=== PATIENT | female | born 1985 | race American Indian/Alaskan Native ===

== ENCOUNTER 2019-07-31 15:20 | Inpatient (IN) | payer MEDICAID ==
[2019-07-31] MEDS ORDERED: LACTATED RINGERS 500 ML IV ONE (17:00)
[2019-07-31 17:08] LABS: Basophils # (Auto) 0.1 K/mm3 (0.0-0.1); Basophils % (Auto) 0.5 % (0.0-1.8); Eosinophils # (Auto) 0.2 K/mm3 (0.0-0.4); Eosinophils % (Auto) 1.3 % (0.0-4.3); Hematocrit 35.3 % (30.3-42.9); Hemoglobin 11.9 gm/dl (10.1-14.3); Lymphocytes # (Auto) 1.6 K/mm3 (1.2-5.4); Lymphocytes % (Auto) 10.8 % (13.4-35.0); Mean Corpuscular HGB Conc 34 % (30-34); Mean Corpuscular Volume 88 fl (79-97); Monocytes # (Auto) 1.1 K/mm3 (0.0-0.8); Monocytes % (Auto) 7.5 % (0.0-7.3); Platelet Count 483 K/mm3 (140-440); Red Blood Count 4.03 M/mm3 (3.65-5.03); Red Cell Distribution Width 15.4 % (13.2-15.2)
[2019-07-31] MEDS ORDERED: OXYTOCIN 20 UNIT/1000ML DRIP 40,000 MILLIUNITS/2,000 ML BAG IV ONE (17:36)
[2019-07-31] MEDS ORDERED: NALOXONE 0.4 MG/1 ML INJ IV PRN (17:47)
[2019-07-31] MEDS ORDERED: MINERAL OIL 30 ML ORAL LIQD PO PRN (17:47)
[2019-07-31] MEDS ORDERED: ePHEDrine SULFATE 50 MG/1 ML INJ IV PRN (17:47)
[2019-07-31] MEDS ORDERED: TERBUTALINE 1 MG/1 ML INJ SUB-Q PRN (17:47)
[2019-07-31] MEDS ORDERED: LIDOCAINE (2%) 20 MG/1 ML VIAL 20 ML MDV INFILTRATI ONE (17:47)
[2019-07-31] MEDS ORDERED: TERBUTALINE 1 MG/1 ML INJ IVP PRN (17:47)
--- NOTE | 2019-07-31 17:52 | History and Physical Report ---
History of Present Illness Date of examination: 07/31/19 Chief complaint: vaginal bleeding History of present illness: Pt is a 33 year old female GABRIEL 12/06/19 at 21w5d who presents with abdominal cramping and vaginal bleeding. She denies leakage of fluid and reports movement. She has had care at [facility] with comanagement by [facility] secondary to advanced maternal age, chronic hypertension on labetalol, morbid obesity, genital herpes without lesion or prodrome, and prior . Her GBS status is unknown. Upon admission, CB and type and screen were ordered, as well as ultrasound for placental location and cervical length. While on-call physician en route to perform speculum exam, pt experienced PPROM and rapidly progressed to delivery. Please see delivery note. Past History Past Medical History: hypertension, other (obesity) Past Surgical History: section [employer] History: herpes Family/Genetic History: heart disease Social history: no significant social history - Obstetrical History Expected Date of Delivery: 12/06/19 Actual Gestation: 21 Week(s) 5 Day(s) : 2 Para: 1 Hx # Term Pregnancies: 1 Number of Pregnancies: 0 Spontaneous Abortions: 0 Induced : 0 Number of Living Children: 1 Medications and Allergies Allergies Allergy/AdvReac Type Severity Reaction Status Date / Time No Known Allergies Allergy Unverified 10/30/14 21:03 Home Medications Medication Instructions Recorded Confirmed Last Taken Type No Known Home Medications [No 10/30/14 10/30/14 Unknown History Reported Home Medications] Active Meds: Active Medications Ephedrine Sulfate (Ephedrine Sulfate) 10 mg IV Q2M PRN PRN Reason: Hypotension Oxytocin/Sodium Chloride (Pitocin/Ns 20 Unit/1000ml Drip) 20 units in 1,000 mls @ 125 mls/hr IV DIRECT FABIAN Lactated Ringer's (Lactated Ringers) 1,000 mls @ 125 mls/hr IV DIRECT FABIAN Mineral Oil (Mineral Oil) 30 ml PO QHS PRN PRN Reason: Constipation Naloxone HCl (Naloxone) 0.1 mg IV Q2MIN PRN PRN Reason: Res Rate </= 8 or 02 SAT < 92% Terbutaline Sulfate (Brethine) 0.25 mg SUB-Q ONCE PRN PRN Reason: Hyperstimulation/Hypertonicity Terbutaline Sulfate (Brethine) 0.25 mg IVP ONCE PRN PRN Reason: Hyperstimulation/Hypertonicity Review of Systems All systems: negative - Vital Signs Vital signs: Vital Signs Pulse BP 93 H 116/61 07/31/19 15:40 07/31/19 15:40 Temp Pulse Resp BP Pulse Ox 98.1 F 93 H 116/61 07/31/19 15:55 07/31/19 15:40 07/31/19 15:40 - Physical Exam Breasts: Positive: deferred Cardiovascular: Regular rate Lungs: Positive: Clear to auscultation Abdomen: Positive: soft (gravid ) Genitourinary (Female): Positive: normal external genitalia Uterus: Positive: enlarged (gravid ) Extremities: Positive: normal Results Result Diagrams: 07/31/19 16:30 Abnormal lab results 07/31/19 Range/Units 16:30 WBC 14.6 H (4.5-11.0) K/mm3 RDW 15.4 H (13.2-15.2) % Plt Count 483 H (140-440) K/mm3 Lymph % (Auto) 10.8 L (13.4-35.0) % Harnett % (Auto) 7.5 H (0.0-7.3) % Harnett # 1.1 H (0.0-0.8) K/mm3 Seg Neutrophils % 79.9 H (40.0-70.0) % Seg Neutrophils # 11.7 H (1.8-7.7) K/mm3 All other labs normal. Assessment and Plan A: s/p at 21w5d of nonviable female PPROM Labor Previous x 1 Vaginal Bleeding Chronic Hypertension on Labetalol Morbid Obesity Advanced Maternal Age GBS Unknown P: Admit to labor and delivery Routine care
--- NOTE | 2019-07-31 17:53 | Procedure Note ---
OB Delivery Note - Delivery Date of Delivery: 07/31/19 Surgeon: CLAUDY SOTO Estimated blood loss: 300cc - Vaginal Delivery presentation: vertex Intrapartum events: labor-<37 weeks Delivery monitor: external FHT, external uterine Route of delivery: Delivery placenta: spontaneous Episiotomy: none Delivery laceration: none Anesthesia: none Delivery comments: While on-call MD en route pt spontaneously ruptured her membranes and rapidly progressed to delivery of a non-viable female over intact perineum under no anesthesia via vaginal after section. Delivery attended by RN. Cord clamped and cut. Upon entry to room, fetus wrapped in a towel and placenta in situ. Placenta delivered spontaneously. Vagina and perineum explored. No lacerations noted. EBL 300 mL. - Infant A at 1 minute: 0 at 5 minutes: 0 Gender: Female
[2019-07-31] MEDS ORDERED: LACTATED RINGERS 1,000 ML IV SCH (18:00)
[2019-07-31] MEDS ORDERED: OXYTOCIN 20 UNIT/1000ML DRIP 20 UNITS/1,000 ML BAG IV SCH (18:00)
[2019-07-31] MEDS ORDERED: HYDROcodone/ACETAMINOPHEN 5-325 MG TAB PO PRN (19:53)
[2019-07-31] MEDS ORDERED: ACETAMINOPHEN 325 MG TAB PO PRN (19:53)
[2019-07-31] MEDS ORDERED: WITCH HAZEL/ GLYCERIN PAD TP PRN (19:53)
[2019-07-31] MEDS ORDERED: MAGNESIUM HYDROXIDE (MOM) ORAL LIQD UDC PO PRN (19:53)
[2019-07-31] MEDS ORDERED: PROMETHAZINE 25 MG TAB PO PRN (19:53)
[2019-07-31] MEDS ORDERED: ONDANSETRON 4 MG/2 ML INJ IV PRN (19:53)
[2019-07-31] MEDS ORDERED: PROMETHAZINE 25 MG RECT SUPP PR PRN (19:53)
[2019-07-31] MEDS ORDERED: diphenhydrAMINE 25 MG CAP PO PRN (19:53)
[2019-07-31] MEDS: IBUPROFEN 600 MG TAB PO SCH (20:07)
[2019-07-31] MEDS: FERROUS SULFATE 325 MG TAB PO SCH (22:35)
[2019-08-01] MEDS: IBUPROFEN 600 MG TAB PO SCH ×2 (02:20→13:40)
[2019-08-01] MEDS ORDERED: MEASLES, MUMPS & RUBELLA 12,500 UNIT/0.5 ML VACCINE SUB-Q ONE (06:00)
[2019-08-01] MEDS ORDERED: TETANUS,DIPH,PERTUSS(ACELL) VACCINE 0.5 ML SYRINGE IM ONE (06:00)
--- NOTE | 2019-08-01 08:30 | Progress Note ---
Assessment and Plan A/P PPD1 s/ routine PP care d/c home tomorrow Subjective - Subjective Date of service: 08/01/19 Principal diagnosis: s/p Patient reports: appetite normal, voiding normally, pain well controlled, flatus, ambulating normally [place]: doing well Objective - Vital Signs Latest vital signs: Vital Signs Temp Pulse Resp BP BP Pulse Ox 08/01/19 05:45 97.9 F 82 16 127/76 99 08/01/19 02:05 98.0 F 94 H 20 114/77 99 07/31/19 21:50 98.0 F 84 16 123/63 98 07/31/19 21:19 85 121/92 07/31/19 21:15 85 16 121/92 100 07/31/19 21:03 86 130/67 07/31/19 21:00 86 18 130/67 98 07/31/19 20:48 92 H 145/86 07/31/19 20:45 92 H 18 145/86 98 07/31/19 20:33 83 121/64 07/31/19 20:30 98 F 83 18 121/64 100 07/31/19 15:55 98.1 F 07/31/19 15:40 93 H 116/61 Intake and Output 07/31/19 08/01/19 08/01/19 23:59 07:59 15:59 Intake Total 180 Output Total 200 Balance -20 Intake: Intake, Free Water 180 Output: Urine 200 Void 200 Other: Total, Output Amount 200 - Exam Breasts: Present: normal Cardiovascular: Present: Regular rate, Normal S1 Lungs: Present: Clear to auscultation, Normal air movement Abdomen: Present: normal appearance, soft, normal bowel sounds. Absent: distention, tenderness, guarding Vulva: both: normal Uterus: Present: normal, firm, fundal height below umbilicus. Absent: bogginess, tenderness Extremities: Present: normal Deep Tendon Reflex Grade: Normal +2 Incision: Present: normal - Labs Labs: Abnormal lab results 07/31/19 Range/Units 16:30 WBC 14.6 H (4.5-11.0) K/mm3 RDW 15.4 H (13.2-15.2) % Plt Count 483 H (140-440) K/mm3 Lymph % (Auto) 10.8 L (13.4-35.0) % O'Brien % (Auto) 7.5 H (0.0-7.3) % O'Brien # 1.1 H (0.0-0.8) K/mm3 Seg Neutrophils % 79.9 H (40.0-70.0) % Seg Neutrophils # 11.7 H (1.8-7.7) K/mm3
--- NOTE | 2019-08-01 08:32 | Discharge Summary ---
Providers - Providers Date of Admission: 07/31/19 17:46 Date of discharge: 08/02/19 Attending physician: CLAUDY SOTO Primary care physician: CLAUDY SOTO Hospitalization Reason for admission: active labor Delivery: Episiotomy: none Laceration: none Incision: normal, dry, intact Other procedures: none complications: none [place] baby: female Hospital course: Routine PP care after . F/u in 4 weeks Condition at discharge: Good Disposition: DC-01 TO HOME OR SELFCARE Plan - Provider Discharge Summary Activity: routine, no sex for 6 weeks, no strenuous exercise Diet: routine Instructions: routine Additional instructions: [] Smoking cessation referral if applicable(refer to patient education folder for contact #) [] Refer to [facility] Booklet Call your doctor immediately for: * Fever > 100.5 * Heavy vaginal bleeding ( >1 pad per hour) * Severe persistent headache * Shortness of breath * Reddened, hot, painful area to leg or breast * Drainage or odor from incision. * Keep incision clean and dry at all times and follow doctor's instructions regarding bathing/showering - Follow up plan Follow up: CLAUDY SOTO MD [Primary Care Provider] - 08/29/19
[2019-08-01] MEDS: FERROUS SULFATE 325 MG TAB PO SCH (10:15)
[2019-08-01 17:11] VITALS: BP 126/67
== END 2019-08-01 18:20 | disposition home or self-care (01) | DRG 774 ==
LOC: TRG 15:20 → LD 17:46 → OB 21:50
PROVIDERS: ADMIT Obstetrics & Gynecology; ATTEND Obstetrics & Gynecology
PROC: 10E0XZZ Delivery of Products of Conception, External Approach (ICD-10-PCS; principal; 2019-07-31)
DX: O60.12X0 Preterm labor second trimester with preterm delivery second trimester, not applicable or unspecified (principal); O10.92 Unspecified pre-existing hypertension complicating childbirth; O99.214 Obesity complicating childbirth; E66.01 Morbid (severe) obesity due to excess calories; O98.32 Other infections with a predominantly sexual mode of transmission complicating childbirth; O42.012 Preterm premature rupture of membranes, onset of labor within 24 hours of rupture, second trimester; Z3A.21 21 weeks gestation of pregnancy; Z37.1 Single stillbirth
CPT/HCPCS: 36415; 81001; 85025; 86850; 86900; 86901; 88305; G0378; J0696; J2590